=== PATIENT | male | born 2000 ===

== ENCOUNTER 2023-10-28 23:32 | Emergency (ER) | payer OTHER, MEDICAID, SELFPAY ==
[2023-10-28 23:40] VITALS: BP 126/80; PULSE 72; RESP 16; TEMP 36.6; O2SAT 100; BMI 24.1
[2023-10-29 02:28] LABS: Urine N gonorrhoeae NOT DETECTED
[2023-10-29 02:32] LABS: Urine Chlamydia NOT DETECTED
--- NOTE | 2023-10-29 02:38 | ED_ITS ---
HPI - Male Genitourinary General Chief complaint: Urogenital-Male Stated complaint: GENITAL SWELLING Time Seen by Provider: 10/29/23 02:28 Source: patient Mode of arrival: Ambulatory History of Present Illness HPI Narrative: 23-year-old male complains of swelling to penis and scrotum. He felt sweaty on driving from [place] to [place] to his mother, with scratching quite frequently. Then put some kind of lotion on penis and scrotum, then has felt like there has been swelling of the penis and scrotum. No direct blow or trauma. He denies any urethral discharge. Some scrotal discomfort. History of chlamydia before, did not feel this way. He denies recent change in masturbation frequency or habits, no other local trauma Related Data Previous Rx's Medication Instructions Recorded prednisone 20 mg tablet 40 mg (2 x 20 mg) PO DAILY 5 days 10/29/23 #10 tabs Allergies Allergy/AdvReac Type Severity Reaction Status Date / Time No Known Drug Allergies Allergy Verified 10/29/23 03:01 Review of Systems Review of Systems ROS Unobtainable: All systems reviewed & are unremarkable except as noted in HPI and below Patient History Social History Smoking Status: Current every day smoker Smoking Status: Current every day smoker tobacco type: vaping Substance Use Type: does not use Exam Initial Vital Signs Initial Vital Signs: Vital Signs Temperature 97.8 F 10/28/23 23:40 Pulse Rate 72 10/28/23 23:40 Respiratory Rate 16 10/28/23 23:40 Blood Pressure 126/80 10/28/23 23:40 Pulse Oximetry 100 10/28/23 23:40 Oxygen Delivery Method Room Air 10/28/23 23:40 Const General: cooperative HENMT Head: atraumatic Nose: external nose normal Face and sinus: face symmetric Mouth: oral mucosae normal and moist mucous membranes Eyes Eyelids: eyelids normal Conjunctivae: conjunctivae normal Sclera: sclerae normal Neck Neck: normal visual inspection Resp Effort & Inspection: normal respiratory effort, able to speak in complete sentences, no respiratory distress and no use of accessory muscles Auscultation: clear to auscultation bilaterally, no rales, no rhonchi and no wheezes Cardio Rate: regular rate Heart Sounds: no murmurs GI Inspection: non-distended Palpation: No tender Other: Circumcised male genitalia, without paraphimosis or phimosis, no meatal discharge, no meatal lesions, no penile shaft lesions although there seems to be diffuse symmetrical edema, also some edema like appearance to the scrotum, some tenderness exam right and left without any asymmetry, equivocal tenderness along the epididymis. There does not seem to be any hives or blistering. Adjacent thighs without erythema infection or hives. Neuro General: patient alert and no focal motor deficits Extrem General: full ROM and no pedal edema Psych Mental Status: mental status grossly normal Course Orders Ordered: Discontinued Medications Azithromycin (Azithromycin 250 Mg Tablet) 1,000 mg PO NOW ONE Stop: 10/29/23 04:15 Last Admin: 10/29/23 04:27 Dose: 1,000 mg Documented By: IKER Diphenhydramine HCl (Diphenhydramine 25 Mg Tablet) 50 mg PO NOW ONE Stop: 10/29/23 02:46 Last Admin: 10/29/23 02:52 Dose: 50 mg Documented By: SURAJ Doxycycline Hyclate (Doxycycline Hyclate 100 Mg Tablet) 100 mg PO NOW ONE Stop: 10/29/23 03:56 Last Admin: 10/29/23 04:00 Dose: 100 mg Documented By: IKER Prednisone (Prednisone 20 Mg Tablet) 40 mg PO NOW ONE Stop: 10/29/23 02:46 Last Admin: 10/29/23 02:52 Dose: 40 mg Documented By: SURAJ Vital Signs Vital signs: Vital Signs - 8 hr 10/28/23 23:40 10/29/23 04:00 Temperature 97.8 F Pulse Rate 72 72 Respiratory Rate 16 16 Blood Pressure 126/80 135/86 Pulse Oximetry 100 100 Oxygen Delivery Method Room Air Room Air MDM - Male Genitourinary Lab Data Labs: Lab Results 10/29/23 Range/Units 00:42 Ur Chlamydia DNA (PCR) Not detected N gonorrhoeae DNA (PCR) Not detected Urine Dip Bedside Urine Glucose Negative Bedside Urine Bilirubin - Negative Bedside Urine Ketone - Negative Urine Specific [place] 1.015 Bedside Urine Occult Blood - Negative Bedside Urine pH 6 Bedside Urine Protein - Negative Bedside Urine Urobilinogen - Negative Bedside Urine Nitrite - Negative Bedside Urine Leukocytes - Negative Esterase MDM Narrative Medical decision making narrative: Scrotal and penile shaft edema, fairly symmetrical, no lower extremity edema, does not seem like a systemic issue but a local issue. Reports history of significant scratching. Consider excessive masturbation for other local trauma. He also apparently use some kind of cream, through the penile shaft and scrotum, consider allergic reaction. No adjacent hives however to crural space. Afebrile, does not have an appearance consistent with cellulitis. We will obtain scrotal ultrasound to see if there is evidence of orchitis or epididymitis with secondary spread, the penile shaft also seems to be involved, favor topical allergic reaction or local trauma from overuse. Urine GC chlamydia sent. Urine GC chlamydia negative. Ultrasound scrotum to be performed. P.o. dose Benadryl, p.o. dose prednisone Ultrasound scrotum [employer] verbal report after hours: Diffuse edema to scrotum that seemed nontender to exam, good blood flow to both testes which were not enlarged. Some hypervascularity to the epididymal body and the epididymal tail on both sides. No abscess or focal fluid collection. P.o. doxycycline dose given. Will contact Urology for phone consultation [phone], case discussed with Urology Dr. Pritchett, who believes is probably some degree of manipulation not being reported that might be cause of his symptoms. He agrees with the course of antibiotic, I would suggest 1 g oral azithromycin now for compliance, over further doxycycline. Consider prednisone antihistamines. Avoid Neosporin which is quite irritative to the penile mucosa, if it might be being used, if the substance described is not an antifungal agent that he applied. Follow-up tomorrow or the next day in his home [place] area with PCP and/or Urology. Urology recommendations related the patient, who was amenable to getting oral azithromycin dose. When Neosporin was mentioned patient believes he actually did use an antibiotic ointment Neosporin on his penis, which apparently is known to be quite irritated to the penile and scrotal mucosa, and seems to be the likely cause. We will give Benadryl and prednisone as well for discharge. Follow up with PCP in 2 days [place] area, consider local urology follow up at that time as well. Return precautions discussed Discharge Plan Departure Patient Disposition: Home Clinical Impression: Contact dermatitis Qualifiers: Contact dermatitis type: unspecified Contact dermatitis trigger: drugs in contact with skin Qualified Code(s): L25.1 - Unspecified contact dermatitis due to drugs in contact with skin Activity Restrictions/Additional Instructions: Swelling and itching to penis and scrotum, eventually we ascertained that you griggs d been using Neosporin ointment in the area, which can be quite irritating to the area per discussion with urology. Ultrasound showed some inflammatory changes to the epididymis above both testes, good flow to both testes. Urology suggested antibiotics, azithromycin dose given in the emergency department, none further required at this time. Use Benadryl antihistamine 1 tablet by mouth 4 times daily For the next 5-7 days. Take oral prednisone 2 tabs daily for the next 5 days. Avoid use of any further Neosporin and the penile scrotal area. Recheck with your regular provider the next 1-2 days in your home [place] area. recheck to this/nearest emergency department for any change worsening symptoms or any concerns prior Prescriptions: New prednisone 20 mg tablet 40 mg PO DAILY 5 Days Qty: 10 0RF Stand Alone Forms: Patient Portal/API
--- NOTE | 2023-10-29 02:39 | DI.US.S_ITS ---
PROCEDURE: US SCROTUM INDICATIONS: Scrotal and penile swelling TECHNIQUE: Real-time scanning was performed of the scrotum and testicles, with image documentation. Color and pulse Doppler interrogation was performed of both testicles. COMPARISON: None. FINDINGS: Right: Testicle is normal in size at 4.1 x 3.2 x 1.7 cm, and homogenous in echotexture. Increased vascularity noted in the body and tail epididymis No hydrocele or varicoceles. Left: Testicle is normal in size at 4.2 x 2.3 x 2.0 cm, and homogeneous in echotexture. Increased vascularity of the body and tail of epididymis No hydrocele or varicoceles. Doppler: Color and pulse Doppler demonstrate normal and symmetric arterial flow in both testicles. Diffusely thickened scrotal wall with increased vascularity noted as well IMPRESSION: Bilateral epididymitis associated with scrotal wall cellulitis. Note: This final report is concordant with the preliminary after-hours interpretation provided by [email or web address] Approved by: Maximino Grossman M.D. on 10/29/2023 at 8:53
[2023-10-29] MEDS: diphenhydrAMINE 25 MG TABLET 50 MG PO (02:52)
[2023-10-29] MEDS: predniSONE 20 MG TABLET 40 MG PO (02:52)
[2023-10-29 04:00] VITALS: BP 135/86; PULSE 72; RESP 16; O2SAT 100
[2023-10-29] MEDS: DOXYCYCLINE HYCLATE 100 MG TABLET PO (04:00)
[2023-10-29] MEDS: AZITHROMYCIN 250 MG TABLET 1000 MG PO (04:27)
[2023-10-29 05:02] VITALS: BP 142/87; PULSE 78; RESP 18; O2SAT 98
== END 2023-10-29 05:03 | disposition home or self-care (01) ==
PROVIDERS: Emergency Provider Emergency Medicine
DX: L25.1 Unspecified contact dermatitis due to drugs in contact with skin (principal)
CPT/HCPCS: 76870; 81003; 87491; 87591; 93975; 99283